=== PATIENT | male | born 1945 | race Caucasian/White ===

== ENCOUNTER → 2018-12-10 | Outpatient (CLI) | payer OTHER | END | disposition home or self-care (01) | LOC: RAD 11:57 | DX: R04.2 Hemoptysis (principal) ==

== ENCOUNTER 2018-12-11 14:49 | Outpatient (CLI) | payer OTHER | END 2018-12-12 17:00 | disposition home or self-care (01) | LOC: TOM 14:49 | DX: R04.2 Hemoptysis (principal) ==